=== PATIENT | male | born 1935 | race Caucasian/White ===

== ENCOUNTER 2016-07-29 14:29 | Inpatient (IN) | payer MEDICARE ==
--- NOTE | ~2016-07-29 | EKG ---
PATIENT: LAYNE JONES UNIT #: [id number] Ventricular Rate: 72 BPM Atrial Rate: 72 BPM P-R Interval: 118 ms QRS Duration: 90 ms Q-T Interval: 402 ms QTC Calculation(Bezet): 440 ms P [place]: 8 degrees Calculated R [place]: 24 degrees Calculated T [place]: 53 degrees Diagnosis Line: Sinus rhythm with Premature supraventricular Diagnosis Line: complexes Diagnosis Line: Possible Inferior infarct , age undetermined Diagnosis Line: Abnormal ECG Diagnosis Line: When compared with ECG of 06-NOV-2015 06:04, Diagnosis Line: Premature ventricular complexes are no longer Diagnosis Line: Present Diagnosis Line: Premature supraventricular complexes are now Diagnosis Line: Present Diagnosis Line: ST elevation now present in Inferior leads Diagnosis Line: ST now depressed in Anterolateral leads Diagnosis Line: Confirmed by ALVINO LUGO, JUNIOR ([id number]) on Diagnosis Line: 08/01/2016 3:38:21 PM INTERPRETING MD: HARDY
--- NOTE | ~2016-07-29 | CR72 ---
[facility]. [facility] A Service of [facility] RADIOLOGY TEXT RESULTS PATIENT: LAYNE JONES LOCATION: SEDOF [id number] : [birth year] UNIT #: [id number] AGE: [address]: Marbella Bejarano MD SEX: M ORDER DR: [id number] [place] [address] [id number] I MR#: [id number] #: [id number] NAME: LAYNE JONES : 1935 SEX: M STUDY DATE/TIME: 07/29/2016 14:47 UNIT: SEDOF ROOM: [facility] STUDY DESCRIPTION: CR Chest Single View Portable Attending Physician: Marbella Bejarano M.D. Ordering Physician: Sreedhar Romero M.D. Primary Care Physician: Dale Alejandre M.D. MEDICAL IMAGING REPORT This report is preliminary unless electronic signature is present. EXAM Portable chest, 07/29. INDICATION Chest pain and shortness of air that started 30 minutes ago. FINDINGS AP portable chest is compared with 11/06/2015. Cardiac and mediastinal contours are normal. Left-side dual-lead pacer is unchanged. Lungs appear emphysematous but clear. No pneumothorax. IMPRESSION Emphysema. No active disease. Dictated by... Layne Tillman Jr., M.D. THIS IS AN ELECTRONICALLY VERIFIED REPORT Layne Tillman Jr., M.D. at 07/29/2016 5:00 PM HARPAL/pepito TD: 07/29/2016 16:42 JOB #: [id number] MEDICAL IMAGING REPORT Page 1 of 1
--- NOTE | ~2016-07-29 | EKG ---
PATIENT: LAYNE JONES UNIT #: [id number] Ventricular Rate: 65 BPM Atrial Rate: 65 BPM P-R Interval: 174 ms QRS Duration: 98 ms Q-T Interval: 394 ms QTC Calculation(Bezet): 409 ms P [place]: 44 degrees Calculated R [place]: 41 degrees Calculated T [place]: 71 degrees Diagnosis Line: Normal sinus rhythm Diagnosis Line: Nonspecific ST and T wave abnormality Diagnosis Line: Poor data quality Diagnosis Line: Abnormal ECG Diagnosis Line: When compared with ECG of 06-NOV-2015 06:04, Diagnosis Line: Premature ventricular complexes are no longer Diagnosis Line: Present Diagnosis Line: Confirmed by JUNIOR DE OLIVEIRA MD ([id number]) on Diagnosis Line: 08/01/2016 3:36:51 PM INTERPRETING MD: HARDY
--- NOTE | ~2016-07-29 | EKG ---
PATIENT: LAYNE JONES UNIT #: [id number] Ventricular Rate: 69 BPM Atrial Rate: 69 BPM P-R Interval: 108 ms QRS Duration: 86 ms Q-T Interval: 404 ms QTC Calculation(Bezet): 432 ms P [place]: 55 degrees Calculated R [place]: 31 degrees Calculated T [place]: 27 degrees Diagnosis Line: Sinus rhythm with short AL with Premature atrial Diagnosis Line: complexes Diagnosis Line: Low voltage QRS Diagnosis Line: Cannot rule out Inferior infarct , age Diagnosis Line: undetermined Diagnosis Line: Abnormal ECG Diagnosis Line: When compared with ECG of 31-JUL-2016 06:56, Diagnosis Line: (unconfirmed) Diagnosis Line: Premature atrial complexes are now Present Diagnosis Line: Confirmed by JUNIOR DE OLIVEIRA MD ([id number]) on Diagnosis Line: 08/01/2016 4:11:29 PM INTERPRETING MD: HARDY
--- NOTE | ~2016-07-29 | EKG ---
PATIENT: LAYNE JONES UNIT #: [id number] Ventricular Rate: 65 BPM Atrial Rate: 65 BPM P-R Interval: 144 ms QRS Duration: 96 ms Q-T Interval: 414 ms QTC Calculation(Bezet): 430 ms P [place]: -16 degrees Calculated R [place]: 23 degrees Calculated T [place]: 27 degrees Diagnosis Line: Normal sinus rhythm Diagnosis Line: Possible Inferior infarct , age undetermined Diagnosis Line: Abnormal ECG Diagnosis Line: When compared with ECG of 29-JUL-2016 14:33, Diagnosis Line: (unconfirmed) Diagnosis Line: Borderline criteria for Inferior infarct are now Diagnosis Line: Present Diagnosis Line: Confirmed by JUNIOR DE OLIVEIRA MD ([id number]) on Diagnosis Line: 08/01/2016 3:37:05 PM INTERPRETING MD: HARDY
--- NOTE | ~2016-07-29 | HP ---
Unit #: [id number] #: [id number] Patient: LAYNE CHAVES [id number] [facility]. [address] [place], [place] [address] [id number] I MR#: [id number] NAME: LAYNE CHAVES ROOM: 578 Age: 80 Sex: M Admission Date: 07/29/2016 : 1935 Attending Physician: Marbella Bejarano M.D. Primary Care Physician: Dale Alejandre M.D. HISTORY AND PHYSICAL HISTORY OF PRESENT ILLNESS This is a 80-year-old white male with a history of pacemaker for sick sinus syndrome placed in 2011, TIAs, hypertension, diabetes mellitus type 2 and dementia, who came to the emergency room with left anterior chest wall pain radiating up to the left shoulder and down the left arm. The patient is living with his son who is retired. Had been living in [facility] after his snf. In the last eight months, has been living with his son. The patient is a poor historian due to his dementia. Most information obtained from the medical records, chart and his son who is at the bedside. According to the son, he was at home with him yesterday and he noticed that his father was holding his left shoulder and his left arm. He said it was hurting and he also stated that he had some left anterior chest wall pain. There was no diaphoresis, no palpitations, no dizziness, no presyncope or syncope. He felt like his father didn't look like he was having any dyspnea. He has had no recent cough, fever, chills, no nausea, vomiting or diarrhea. The patient's son gave him an aspirin and brought him in to the emergency room for further evaluation and management. According to the son, he knew this was unusual for his father, that he usually never complains of any pain and he was worried he might be having some type of heart event. In the emergency room, the patient's blood pressure was 158/101, heart rate was 67, respirations 18, temperature 98. On his EKG, it showed sinus rhythm with a short GA and some inferior T waves and some ST-T wave abnormalities in inferior leads. Initial cardiac enzymes - troponin is 0.19 and 0.14 and this morning is 0.49. His creatinine on admission was 1.5 and this morning is 1.2. WBCs are 10.7, otherwise unremarkable. The patient was given aspirin and started on a heparin drip and nitro paste. Also, will be added on a beta zay. The patient will be admitted for treatment for acute coronary syndrome, acute non-Q wave CT and treatment. PAST MEDICAL HISTORY 1. Sick sinus syndrome. Had a permanent pacemaker back in 2011. [address] is a [employer] device, originally placed in [facility] where the patient was living at the time after snf and he then six months later he had to have a new device because of the lead malfunction and that was done at [facility]. 2. History of TIAs. 3. Gastroesophageal reflux disease. 4. Hypertension. 5. Diabetes mellitus type 2. 6. Hyperlipidemia. 7. Dementia. 8. Reformed smoker. Unit #: [id number] #: [id number] Patient: LAYNE CHAVES 9. Stress test 20 years ago, told was normal. PAST SURGICAL HISTORY 1. Appendectomy. 2. Tonsillectomy. 3. 2011 permanent pacemaker placed, [employer] device for sick sinus syndrome. SOCIAL HISTORY The patient lives with his son who is his caregiver because of his severe dementia. Other than that, the patient is a reformed smoker. He quit 30 years ago. No alcohol or illicit drug abuse. FAMILY HISTORY No known coronary artery disease per the patient's son's information. REVIEW OF SYSTEMS CONSTITUTIONAL: Denies fever or chills. No recent weight gain or weight loss. HEENT: Denies headache or dizziness. No visual or hearing changes. No lymphadenopathy or thyromegaly. No difficulty swallowing. CARDIOVASCULAR: Chest pain present. Denies palpitations. No increased lower extremity edema. PULMONARY: Denies shortness of breath. No paroxysmal nocturnal dyspnea or orthopnea. GI: No nausea, vomiting, diarrhea or abdominal pain. NEUROLOGICAL: Severe dementia. Oriented to person and his son and knows he is in the hospital. PHYSICAL EXAMINATION GENERAL: On exam, Mr. Chaves is an 80-year-old white male in no acute respiratory distress. He is awake, alert, oriented to person and place only. Very poor short term memory. VITAL SIGNS: Blood pressure currently is 153/94, heart rate 66, respirations 16, temperature 98.0, O2 sats 98% on room air. NECK: Trachea midline. No thyromegaly or lymphadenopathy. Normal carotid upstrokes. No jugular venous distention. HEART: S1, S2. Regular rate and rhythm. No clicks, murmurs or rubs. LUNGS: Diminished in the bases, otherwise clear. ABDOMEN: Soft, nontender. Positive bowel sounds present. EXTREMITIES: Pedal pulses are palpable. No pedal edema. DIAGNOSTIC STUDIES LABORATORY: Glucose is 133, BUN 21, creatinine 1.2, eGFR 56.0, sodium 137, potassium 4.1, chloride 104, CO2 23, calcium 9.2, magnesium 1.7, total protein 6.7, albumin 3.5, bilirubin total 0.7, AST 17, ALT 11, alkaline phos. 55. WBC 10.7, hemoglobin 15.0, hematocrit 46.7 and platelets 241. Initial cardiac enzymes - CK MB is 1.5, troponin 0.19, CK MB 1.2, troponin 0.14. Later, CK total 26, troponin 0.27. This morning, CK total 46, troponin 0.49. INR is 1.1. IMAGING: Chest x-ray shows emphysema, otherwise no active disease. CARDIOVASCULAR: EKG - sinus rhythm with a rare premature supraventricular complex. Poor R wave progression. Some nonspecific ST T wave Unit #: [id number] #: [id number] Patient: LAYNE CHAVES abnormalities in inferior leads. Also, inferior Q waves. IMPRESSION 1. Chest pain. 2. Acute non-Q wave myocardial infarction, acute pulmonary syndrome. 3. History of sick sinus syndrome: Has a permanent pacemaker. 4. Renal insufficiency. 5. Hypertension. 6. Diabetes mellitus type 2. 7. Hyperlipidemia. 8. Dementia. 9. Reformed smoker. 10. History of transient ischemic attacks. 11. Gastroesophageal reflux disease. PLAN 1. Patient was admitted for further evaluation and management. Patient is on a heparin drip, nitro paste, aspirin and a statin. Also, patient is on a beta zay which will also help with his blood pressure management. Dr. Bejarano had a long discussion with the patient and his son who is the power of technician's helper who offered him cardiac cath versus medical management due to his severe dementia. The son states he would prefer that he had the cardiac catheterization in spite of his dementia. Dr. Bejarano explained the risks and benefits to the son and the patient including risk of bleeding, myocardial infarction, stroke and even . The patient and son verbalized understanding and agree to proceed. Continue patient on aspirin, heparin drip, nitro paste, metoprolol and a beta zay. 2. Obtain a fasting lipid profile and TSH and evaluate. 3. On exam, there are no signs or symptoms of acute congestive heart failure. 4. Patient will have no LV gram with his cardiac cath because on admission patient's creatinine was 1.5 and this morning is 1.2. 5. Patient's magnesium was a little low. Will supplement that before the cath. Further recommendations pending per Dr. Martin after the heart catheterization and per Dr. Bejarano. Dictated by Mary Ann Scott A.P.R.N. for Joseph Ocampo/yana TD: 07/30/2016 10:20 JOB #: [id number] Unit #: [id number] #: [id number] Patient: LAYNE CHAVES HISTORY AND PHYSICAL Page 1 of 1 X Mary Ann Scott APRN HISTORY AND PHYSICAL
--- NOTE | ~2016-07-29 | EKG ---
PATIENT: LAYNE JONES UNIT #: [id number] Ventricular Rate: 65 BPM Atrial Rate: 65 BPM P-R Interval: 138 ms QRS Duration: 90 ms Q-T Interval: 426 ms QTC Calculation(Bezet): 443 ms P [place]: 4 degrees Calculated R [place]: 22 degrees Calculated T [place]: 23 degrees Diagnosis Line: Normal sinus rhythm Diagnosis Line: Low voltage QRS Diagnosis Line: Borderline ECG Diagnosis Line: When compared with ECG of 30-JUL-2016 07:50, Diagnosis Line: (unconfirmed) Diagnosis Line: Premature supraventricular complexes are no longer Diagnosis Line: Present Diagnosis Line: ST no longer depressed in Anterolateral leads Diagnosis Line: Confirmed by ALVINO LUGO, JUNIOR ([id number]) on Diagnosis Line: 08/01/2016 3:56:21 PM INTERPRETING MD: HARDY
--- NOTE | ~2016-07-29 | DS ---
Unit #: [id number] #: [id number] Patient: LAYNE JONES [id number] [address] [place], [place] [address] [id number] I MR#: [id number] NAME: LAYNE JONES ROOM: 561 Age: 80 Sex: M Admission Date: 07/30/2016 : 1935 Discharge Date: 08/01/2016 Attending Physician: Marbelal Bejarano M.D. Primary Care Physician: Dale Alejandre M.D. DISCHARGE SUMMARY DISCHARGE DIAGNOSES 1. Acute inferior wall non-ST elevation myocardial infarction. 2. Status post cardiac catheterization 07/30/[address] Martin at [facility] that reveals the following results: a) Left main normal. b) Left anterior descending with 30% stenosis at the junction of the proximal two thirds and distal one third. First diagonal branch 60% to 70% stenosis in the proximal third. The distal one third has a long segment stenosis of 90%. Second diagonal branch normal. c) Circumflex artery normal with first marginal branch of the circumflex artery with 50% stenosis at its origin. Second marginal branch of 75% near its origin. d) Right coronary artery with acute occlusion. It is a large caliber dominant vessel with approximately proximal third with mild plaquing. At the junction of the proximal third and distal two thirds, there is 99% stenosis with evidence of plaque rupture and thrombus distal to the stenosis. Mid right coronary artery is 50%. Distal right coronary artery normal. PDA and PLV branches are normal. e) No LV gram due to renal insufficiency. 3. Status post percutaneous coronary intervention with drug-eluting in-stent two the proximal right coronary artery 07/30/2016. 4. Hypertension. 5. Hyperlipidemia. 6. Sick sinus syndrome, status post [employer] permanent pacemaker in 2011. 7. Dementia. 8. History of transient ischemic attacks. DISCHARGE MEDICATIONS 1. Glucophage 1000 mg b.i.d. 2. Atorvastatin 80 mg q. h.s. 3. Metoprolol tartrate 25 mg b.i.d. 4. Aricept 10 mg q. h.s. 5. Aspirin 81 mg daily. 6. Brilinta 90 mg b.i.d. 7. Nitroglycerin 0.4 mg sublingual q.5 minutes x3 p.r.n. chest pain. HOSPITAL COURSE This is an 80-year-old white male who presented to the emergency room with chest pain that radiated into his left arm. The patient has dementia and has been living with his son. Previously lived in [facility] after fdc. His initial troponin was elevated at 0.19 but peaked at 0.63 ruling him in for an acute ST elevation myocardial infarction. He was Unit #: [id number] #: [id number] Patient: LAYNE JONES treated in the emergency room with aspirin. He was started on p.r.n. morphine and nitrate. He was started on anticoagulation with heparin drip. Lipid profile was obtained which found him to have elevated cholesterol level at 240 with LDL of 172. He was continued on his home dose of high intensity statin with Lipitor 80 mg. Because of his dementia, it was discussed with his son who also is a power of injection molding machine setter with aggressive emphasis care. Risks and benefits were explained but the son wanted to pursue cardiac catheterization. The following day, the patient went to the cardiac catheterization lab where he was found to have a 99% stenosis in the proximal right coronary artery that was thrombus burden. This was the infarct artery. The circumflex artery and first marginal branch had nonobstructive disease with second marginal branch of 75% stenosis. LAD was normal but the first diagonal branch had 60% to 70% stenosis followed by a 90% stenosis distally. It was felt that the patient needed immediate PCI of the right coronary artery for revascularization. There was successful deployment of a 3.0 x 24 mm Synergy drug-eluting stent that was post dilated to 3.39 mm into the proximal right coronary artery reducing a 99% stenosis to 0%. He was loaded with Brilinta during the procedure and continued on aspirin. He was given beta zay and long acting nitrates. It was felt at a later date that the circumflex marginal branch and the diagonal branch may need PCI if the patient's angina was continued despite medical therapy. Post procedure the patient did well. He had a period of lethargy but he was somewhat sleep deprived throughout his stay. He had no electrocardiogram changes. His MB index was 3.9. He was allowed to ambulate in the room without difficulty. Initially felt that the patient needed to go to rehab. However, the son wanted to take him home. Physical therapy and occupational therapy saw the patient and felt that he needed assistance with activities of daily living which his son provides for him. It was felt that he can go home safely with home health. His pacemaker was interrogated and he had several runs of ventricular tachycardia that was felt was related to his coronary artery disease. No ventricular tachycardia was noted during his stay. He was continued on beta zay. Today, the patient is awake and eating his lunch with his son at his bedside. He has no symptoms of angina. He denies palpitations. His heart rate and blood pressure are stable. His function is stable. Right radial site is healing well without hematoma or bruising. He is stable for discharge today. ASSESSMENT VITAL SIGNS: Blood pressure 130/70, heart rate 68. HEART: S1, S2 heart sounds are normal. No murmurs, no rubs or clicks. Regular rate and rhythm. ABDOMEN: Soft, nontender with bowel sounds present. EXTREMITIES: Without leg edema. Right radial without hematoma or bruising. DIAGNOSTIC STUDIES LABORATORY: Glucose 100, BUN 23, creatinine 1.2, sodium 139, potassium 4.6, cholesterol 240, triglycerides 80, LDL 172, HDL 52, white count 13.5, hemoglobin 14.9, hematocrit 45.0, platelet count 264. IMAGING: Chest x-ray shows no active disease but noted for emphysema. CARDIOVASCULAR: Electrocardiogram shows normal sinus rhythm with a rate of 65 beats/minute with low voltage QRS. There are Q waves noted in the inferior leads, III and AVF. Unit #: [id number] #: [id number] Patient: LAYNE JONES DISCHARGE INSTRUCTIONS 1. The patient will be discharged home today with [facility] for home care. 2. Follow up with his primary care physician in 7 to 10 weeks. 3. Follow up with Dr. Bejarano on September 15 at 12:30 p.m. He will need a pacemaker check at that time. 4. The cost of the patient's Brilinta is affordable, according to the son. He has been instructed to continue Brilinta for at least one year without discontinuation to prevent stent thrombosis. He verbalized understanding. If angina was to continue, PCI of the circumflex and diagonal branch can be done in 6 to 8 weeks after his renal function stabilizes. 5. [facility] on 08/13/2016 with results to be faxed to our office to evaluate his renal status post cardiac catheterization. 6. According to the patient's son, he lives in [facility] but plans to be here for at least the next three months. 7. Cardiac rehab saw the patient but son was not available. They will follow up with the patient at discharge. Dictated by... Erick Elise A.P.R.N. for Joseph Ocampo/yana TD: 08/04/2016 09:29 JOB #: [id number] DISCHARGE SUMMARY Page 1 of 1 X Erick Elise APRN X DISCHARGE SUMMARY
[~2016-07-29 14:29] MED LIST: ARICEPT5 M1 PO; ASPIRIN81 M1 PO; BAYER ASPIRIN325 M1 PO; HALDOL PO; LANTUS100 U/ML SUBQ; LEVEMIR100 UNITS/ SUBQ; LIPITOR80 MG PO; METFORMIN HCL500 M2 PO; MEVACOR10 MG PO; OMNICEF300 M1 PO; REMERON15 MG PO
[2016-07-29 14:55] LABS: BASOPHIL% 0.3 % (0-2.5); EOSINOPHIL# 0.3 X10e3 (0-0.7); EOSINOPHIL% 2.9 % (0.0-7.0); HEMATOCRIT 47.3 % (38.0-50.0); HEMOGLOBIN 16.2 gm/dL (13.0-16.0); LYMPHOCYTE% 35.2 % (17.0-45.0); MEAN CELL VOLUME 85.4 FL (83-96); MEAN CORPUSCULAR HEMOGLOBIN 29.3 PG (28-34); MEAN CORPUSCULAR HGB CONC 34.3 g/dL (30-36); MEAN PLATELET VOLUME 8.1 FL (6.5-11.5); MONOCYTE# 0.9 X10e3 (0-1.0); MONOCYTE% 7.8 % (3.0-12.0); NEUTROPHIL# 6.1 X10e3 (1.5-7.1); NEUTROPHIL% 53.8 % (40-75); PLATELET COUNT 242 X10e3 (140-420); RED BLOOD COUNT 5.54 X10e (3.90-5.60); RED CELL DISTRIBUTION WIDTH 13.3 % (11.0-15.5); WHITE BLOOD COUNT 11.4 X10e3 (4.0-10.5)
[2016-07-29 15:01] LABS: INR 1.1; PROTHROMBIN TIME (PATIENT) 12.3 SECONDS (9.5-12.4)
[2016-07-29 15:03] LABS: DIFF IND NO
[2016-07-29 15:08] LABS: POC - CKMB 1.5 ng/mL (0.0-7.9); POC - TROPONIN 0.19 ng/mL (<=0.05)
[2016-07-29 15:08] LABS: PARTIAL THROMBOPLASTIN TIME 27.5 SECONDS (25.6-38.1)
[2016-07-29 15:12] LABS: ALBUMIN SERUM 3.9 g/dL (3.5-5.0); BILIRUBIN, DIRECT 0.2 mg/dL (0.0-0.2); BILIRUBIN,INDIRECT 0.6 mg/dL (0.0-0.9); BILIRUBIN,TOTAL 0.8 mg/dL (0.2-2.0); BUN/CREATININE RATIO 15.33; CALCIUM SERUM 9.4 mg/dL (8.4-10.2); CREATININE SERUM 1.5 mg/dL (0.6-1.4); GLOM FILT RATE Estimated 42.8 mL/min (>60); POTASSIUM 4.1 mmol/L (3.5-5.1); PROTEIN TOTAL SERUM 7.7 g/dL (6.0-8.3)
[2016-07-29 16:29] LABS: POC - CKMB 1.2 ng/mL (0.0-7.9); POC - TROPONIN 0.14 ng/mL (<=0.05)
[2016-07-29] MEDS ORDERED: METFORMIN PO (18:10)
[2016-07-29 19:27] LABS: CK TOTAL 26 IU/L (36-174)
[2016-07-30 00:57] LABS: CK TOTAL 47 IU/L (36-174)
[2016-07-30 05:42] LABS: HEMATOCRIT 46.7 % (38.0-50.0); MEAN CELL VOLUME 86.1 FL (83-96); MEAN CORPUSCULAR HEMOGLOBIN 29.5 PG (28-34); MEAN CORPUSCULAR HGB CONC 34.3 g/dL (30-36); MEAN PLATELET VOLUME 8.2 FL (6.5-11.5); RED BLOOD COUNT 5.42 X10e (3.90-5.60); RED CELL DISTRIBUTION WIDTH 13.6 % (11.0-15.5); WHITE BLOOD COUNT 10.7 X10e3 (4.0-10.5)
[2016-07-30 06:38] LABS: ALBUMIN SERUM 3.5 g/dL (3.5-5.0); BILIRUBIN,TOTAL 0.7 mg/dL (0.2-2.0); BUN/CREATININE RATIO 17.5; CALCIUM SERUM 9.2 mg/dL (8.4-10.2); CREATININE SERUM 1.2 mg/dL (0.6-1.4); MAGNESIUM 1.7 mg/dL (1.6-3.0); POTASSIUM 4.1 mmol/L (3.5-5.1); PROTEIN TOTAL SERUM 6.7 g/dL (6.0-8.3)
[2016-07-30 08:45] LABS: CK TOTAL 46 IU/L (36-174)
[2016-07-31 06:40] LABS: HEMOGLOBIN 15.2 gm/dL (13.0-16.0); MEAN CELL VOLUME 87.2 FL (83-96); MEAN CORPUSCULAR HEMOGLOBIN 28.9 PG (28-34); MEAN CORPUSCULAR HGB CONC 33.1 g/dL (30-36); MEAN PLATELET VOLUME 8.5 FL (6.5-11.5); RED BLOOD COUNT 5.27 X10e (3.90-5.60); RED CELL DISTRIBUTION WIDTH 13.5 % (11.0-15.5); WHITE BLOOD COUNT 15.4 X10e3 (4.0-10.5)
[2016-07-31 07:51] LABS: BUN/CREATININE RATIO 18.57; CALCIUM SERUM 9.7 mg/dL (8.4-10.2); CREATININE SERUM 1.4 mg/dL (0.6-1.4); GLOM FILT RATE Estimated 46.5 mL/min (>60); POTASSIUM 4.4 mmol/L (3.5-5.1)
[2016-07-31 10:37] LABS: %MB 3.9 % (0.0-4.0); MB 5.2 ng/ml
[2016-07-31 15:56] LABS: URINE APPEARANCE CLEAR; URINE BILIRUBIN NEG (NEG); URINE BLOOD NEG (NEG); URINE COLOR YELLOW; URINE GLUCOSE NEG (NEG); URINE KETONE TRACE (NEG); URINE LEUKOCYTE ESTERASE NEG (NEG); URINE NITRATE NEG (NEG); URINE PROTEIN NEG (NEG); URINE SPECIFIC GRAVITY 1.025 (1.003-1.035)
[2016-08-01 06:49] LABS: HEMOGLOBIN 14.9 gm/dL (13.0-16.0); MEAN CELL VOLUME 86.4 FL (83-96); MEAN CORPUSCULAR HEMOGLOBIN 28.6 PG (28-34); MEAN CORPUSCULAR HGB CONC 33.1 g/dL (30-36); MEAN PLATELET VOLUME 8.4 FL (6.5-11.5); RED BLOOD COUNT 5.21 X10e (3.90-5.60); RED CELL DISTRIBUTION WIDTH 13.7 % (11.0-15.5); WHITE BLOOD COUNT 13.5 X10e3 (4.0-10.5)
[2016-08-01 07:30] LABS: BUN/CREATININE RATIO 19.16; CALCIUM SERUM 9.6 mg/dL (8.4-10.2); CREATININE SERUM 1.2 mg/dL (0.6-1.4); POTASSIUM 4.6 mmol/L (3.5-5.1)
[2016-08-01] MEDS ORDERED: ASPIRIN81 M2 PO (12:47)
[2016-08-01] MEDS ORDERED: BRILINTA90 MG PO (12:49)
[2016-08-01] MEDS ORDERED: NITROGLYGERIN0.4 MG SL (12:50)
[2016-08-01] MEDS ORDERED: METOPROLOL TAR25 MG PO (12:51)
[2016-08-01] MEDS ORDERED: ARICEPT PO (12:52)
[2016-08-01] MEDS ORDERED: BMP (LAB) (12:57)
== END 2016-08-01 15:21 | disposition home or self-care (01) | DRG 247 ==
LOC: SED 14:29 → SEDOF 15:29 → C5C 17:26 → SEDOF 17:26 → C5C 07-30 13:20 → SEDOF 07-30 13:20 → C5C 07-30 13:20 → SED 07-30 13:20 → C5B 07-30 20:56
PROVIDERS: Emergency Medicine; Internal Medicine Cardiovascular Disease
PROC: 027035Z Dilation of Coronary Artery, One Artery with Two Drug-eluting Intraluminal Devices, Percutaneous Approach (ICD-10-PCS; principal; 2016-07-30)
PROC: 4A023N7 Measurement of Cardiac Sampling and Pressure, Left Heart, Percutaneous Approach (ICD-10-PCS; 2016-07-30)
PROC: B211YZZ Fluoroscopy of Multiple Coronary Arteries using Other Contrast (ICD-10-PCS; 2016-07-30)
DX: I21.4 Non-ST elevation (NSTEMI) myocardial infarction (principal); F03.90 Unspecified dementia, unspecified severity, without behavioral disturbance, psychotic disturbance, mood disturbance, and anxiety; N18.3 Chronic kidney disease, stage 3 (moderate); E11.9 Type 2 diabetes mellitus without complications; E78.5 Hyperlipidemia, unspecified; Z95.0 Presence of cardiac pacemaker; K21.9 Gastro-esophageal reflux disease without esophagitis; I12.9 Hypertensive chronic kidney disease with stage 1 through stage 4 chronic kidney disease, or unspecified chronic kidney disease
CPT/HCPCS: 36415; 71010; 80048; 80053; 80061; 80076; 81003; 82550; 82553; 82947; 83735; 84484; 85025; 85027; 85049; 85347; 85610; 85730; 93005; 96374; 97161; 97166; 99285; C1725; C1769; C1874; C1887; C1894; C9460; G8978-GP; G8979-GP; G8980-GP; G8987-GO; G8988-GO; G8989-GO; J0153; J1327; J1644; J1815; J2250; J2270; J2405; J3010; J3475

== ENCOUNTER 2016-08-10 00:10 | Emergency (ER) | payer MEDICARE ==
--- NOTE | ~2016-08-10 | CR72 ---
[facility] A Service of [facility] RADIOLOGY TEXT RESULTS PATIENT: LAYNE JONES LOCATION: [facility] : 31 UNIT #: [id number] AGE: [address]: Cameron Sosa MD SEX: M ORDER DR: [id number] [facility] [address] [facility]. [place], [place] [address] [id number] MR#: [id number] Acc #: [id number] NAME: LAYNE JONES : 1935 SEX: M STUDY DATE/TIME: 08/10/2016 0:57 UNIT: TRUDY ROOM: STUDY DESCRIPTION: CR Chest Single View Portable Attending Physician: Cameron Sosa M.D. Ordering Physician: Cameron Sosa M.D. Primary Care Physician: Dale Alejandre M.D. MEDICAL IMAGING REPORT This report is preliminary unless electronic signature is present EXAM Portable frontal view chest INDICATION Chest pain today. COMPARISON 07/29/2016 FINDINGS Heart size is unchanged. No dense consolidation, pleural fluid or pneumothorax. IMPRESSION No active process. No change from 07/29/2016. Dictated by... Nura Ansari M.D. THIS IS AN ELECTRONICALLY VERIFIED REPORT Nura Ansari M.D. at 08/10/2016 10:22 PM KARLOD/netta TD: 08/10/2016 03:08 JOB #: [id number] MEDICAL IMAGING REPORT Page 1 of 1 COPY
--- NOTE | ~2016-08-10 | CR2 ---
[facility] A Service of [facility] RADIOLOGY TEXT RESULTS PATIENT: LAYNE JONES LOCATION: [facility] : 33 UNIT #: [id number] AGE: [address]: Cameron Sosa MD SEX: M ORDER DR: [id number] [facility] [address] [place], [place] [address] [id number] MR#: [id number] Acc #: [id number] NAME: LAYNE JONES : 1935 SEX: M STUDY DATE/TIME: 08/10/2016 1:13 UNIT: [facility] ROOM: STUDY DESCRIPTION: CR Abdomen Acute Series Attending Physician: Cameron Sosa M.D. Ordering Physician: Cameron Sosa M.D. Primary Care Physician: Dale Alejandre M.D. MEDICAL IMAGING REPORT This report is preliminary unless electronic signature is present EXAM Acute abdominal series INDICATION Nausea, vomiting. Right-sided chest pain today. PROCEDURE Frontal view chest, supine and upright views abdomen and pelvis. COMPARISON None. FINDINGS Mild cardiomegaly. No dense consolidation. No free air. Nonobstructed bowel gas pattern. Large colonic stool burden. IMPRESSION Large colonic stool burden. No acute findings. Dictated by... Nura Ansari M.D. THIS IS AN ELECTRONICALLY VERIFIED REPORT Nura Ansari M.D. at 08/10/2016 10:22 PM EED/netta TD: 08/10/2016 03:21 JOB #: [id number] MEDICAL IMAGING REPORT [facility] A Service of [facility] RADIOLOGY TEXT RESULTS PATIENT: LAYNE JONES LOCATION: [facility] : 33 UNIT #: [id number] AGE: [address]: Cameron Sosa MD SEX: M ORDER DR: Page 1 of 1 COPY
--- NOTE | ~2016-08-10 | EKG ---
PATIENT: LAYNE JONES UNIT #: [id number] Ventricular Rate: 70 BPM Atrial Rate: 70 BPM P-R Interval: 148 ms QRS Duration: 84 ms Q-T Interval: 394 ms QTC Calculation(Bezet): 425 ms Calculated R [place]: 30 degrees Calculated T [place]: 30 degrees Diagnosis Line: Normal sinus rhythm Diagnosis Line: Low voltage QRS Diagnosis Line: Borderline ECG Diagnosis Line: When compared with ECG of 01-AUG-2016 05:37, Diagnosis Line: Premature atrial complexes are no longer Present Diagnosis Line: Confirmed by ESME REAL MD ([id number]) on Diagnosis Line: 08/10/2016 10:46:10 PM INTERPRETING MD: DENNYS
--- NOTE | ~2016-08-10 | CT71 ---
[facility] RADIOLOGY TEXT RESULTS PATIENT: LAYNE JONES LOCATION: [facility] : 31 UNIT #: [id number] AGE: [address]: Cameron Sosa MD SEX: M ORDER DR: [id number] [place], [place] [address] [id number] MR#: [id number] Acc #: [id number] NAME: LAYNE JONES : 1935 SEX: M STUDY DATE/TIME: 08/10/2016 1:17 UNIT: [facility] ROOM: STUDY DESCRIPTION: CT Head Wo Contrast Attending Physician: Cameron Sosa M.D. Ordering Physician: Cameron Sosa M.D. Primary Care Physician: Dale Alejandre M.D. MEDICAL IMAGING REPORT This report is preliminary unless electronic signature is present EXAM CT head without contrast INDICATION Confusion today. PROCEDURE Unenhanced CT head. This CT exam was performed with one or more of the following radiation dose reduction techniques: automatic exposure control, adjustment of mA and/or kV according to patient size, and iterative reconstruction. COMPARISON 04/08/2016 FINDINGS Generalized volume loss. No acute hemorrhage, abnormal mass effect, extraaxial fluid collection or hydrocephalus. No depressed calvarial fracture. The paranasal sinuses and mastoid air cells are clear. IMPRESSION No acute intracranial findings. Dictated by... Nura Ansari M.D. THIS IS AN ELECTRONICALLY VERIFIED REPORT Nura Ansari M.D. at 08/10/2016 10:22 PM EED/ljd [facility] RADIOLOGY TEXT RESULTS PATIENT: LAYNE JONES LOCATION: [facility] : 31 UNIT #: [id number] AGE: [address]: Cameron Sosa MD SEX: M ORDER DR: TD: 08/10/2016 03:22 JOB #: [id number] MEDICAL IMAGING REPORT Page 1 of 1 COPY
[~2016-08-10 00:10] MED LIST changes: +ARICEPT PO; +ASPIRIN81 M2 PO; +BMP (LAB); +BRILINTA90 MG PO; +METFORMIN PO; +METOPROLOL TAR25 MG PO; +NITROGLYGERIN0.4 MG SL
[2016-08-10 01:01] LABS: BASOPHIL% 0.1 % (0-2.5); EOSINOPHIL# 0.2 X10e3 (0-0.7); EOSINOPHIL% 1.4 % (0.0-7.0); HEMATOCRIT 46.4 % (38.0-50.0); HEMOGLOBIN 15.3 gm/dL (13.0-16.0); LYMPHOCYTE# 2.2 X10e3 (1.0-3.5); LYMPHOCYTE% 13.5 % (17.0-45.0); MEAN CELL VOLUME 86.9 FL (83-96); MEAN CORPUSCULAR HEMOGLOBIN 28.7 PG (28-34); MEAN PLATELET VOLUME 8.6 FL (6.5-11.5); MONOCYTE# 0.9 X10e3 (0-1.0); MONOCYTE% 5.3 % (3.0-12.0); NEUTROPHIL# 13.3 X10e3 (1.5-7.1); NEUTROPHIL% 79.7 % (40-75); PLATELET COUNT 257 X10e3 (140-420); RED BLOOD COUNT 5.34 X10e (3.90-5.60); RED CELL DISTRIBUTION WIDTH 13.8 % (11.0-15.5); WHITE BLOOD COUNT 16.7 X10e3 (4.0-10.5)
[2016-08-10 01:02] LABS: DIFF IND YES
[2016-08-10 01:14] LABS: INR 1.1; PARTIAL THROMBOPLASTIN TIME 22.9 SECONDS (23.5-31.3); PROTHROMBIN TIME (PATIENT) 11.4 SECONDS (10.0-11.7)
[2016-08-10 01:23] LABS: PLATELET ESTIMATE NORMAL (NORMAL)
[2016-08-10 01:31] LABS: ALBUMIN SERUM 3.6 g/dL (3.5-5.0); BILIRUBIN, DIRECT 0.1 mg/dL (0.0-0.2); BILIRUBIN,INDIRECT 0.5 mg/dL (0.0-0.9); BILIRUBIN,TOTAL 0.6 mg/dL (0.2-2.0); BUN/CREATININE RATIO 23.07; CREATININE SERUM 1.3 mg/dL (0.6-1.4); GLOM FILT RATE Estimated 50.8 mL/min (>60); POTASSIUM 5.4 mmol/L (3.5-5.1); PROTEIN TOTAL SERUM 7.1 g/dL (6.0-8.3)
[2016-08-10 02:24] LABS: POC - CKMB <1.0 ng/mL (0.0-7.9); POC - TROPONIN <0.05 ng/mL (<=0.05)
[2016-08-10 02:26] LABS: URINE SOURCE CLEAN CATCH
[2016-08-10 02:34] LABS: URINE APPEARANCE CLEAR; URINE BILIRUBIN NEG (NEG); URINE BLOOD NEG (NEG); URINE COLOR YELLOW; URINE GLUCOSE 250 MG/DL (NEG); URINE KETONE NEG (NEG); URINE LEUKOCYTE ESTERASE NEG (NEG); URINE NITRATE NEG (NEG); URINE PROTEIN TRACE (NEG); URINE SPECIFIC GRAVITY 1.022 (1.003-1.035)
[2016-08-10 03:02] LABS: CULTURE INDICATED? NO
[2016-08-10 03:51] LABS: POC - CKMB <1.0 ng/mL (0.0-7.9); POC - TROPONIN <0.05 ng/mL (<=0.05)
== END 2016-08-10 05:08 | disposition home or self-care (01) ==
LOC: CED 00:10
PROVIDERS: Emergency Medicine
DX: R11.2 Nausea with vomiting, unspecified (principal); E87.5 Hyperkalemia; I10 Essential (primary) hypertension; Z79.82 Long term (current) use of aspirin; Z79.899 Other long term (current) drug therapy
CPT/HCPCS: 36415; 70450; 71010; 74022; 80048; 80076; 81003; 82553; 83690; 84484; 85025; 85610; 85730; 93005; 96360; 99285; J2405